=== PATIENT | female | born 2000 | race Caucasian/White ===

== ENCOUNTER → 2024-09-11 09:40 | Outpatient (CLI) | payer OTHER, SELFPAY ==
[2024-09-11 12:37] LABS: Urine N gonorrhoeae NOT DETECTED
[2024-09-11 12:40] LABS: Urine Chlamydia NOT DETECTED
== END ==
PROVIDERS: PCP Physician Assistant; Visit Provider Student in an Organized Health Care Education/Training Program
DX: Z11.3 Encounter for screening for infections with a predominantly sexual mode of transmission (principal)
CPT/HCPCS: 87491; 87591

== ENCOUNTER → 2024-09-27 10:26 | Outpatient (CLI) | payer OTHER, SELFPAY ==
[2024-09-27 11:35] LABS: Natera Collection Specimen Collected
== END ==
PROVIDERS: PCP Physician Assistant; Referring Provider Student in an Organized Health Care Education/Training Program; Visit Provider Student in an Organized Health Care Education/Training Program
DX: O09.899 Supervision of other high risk pregnancies, unspecified trimester (principal)
CPT/HCPCS: 87086

== ENCOUNTER → 2024-10-09 11:34 | Outpatient (CLI) | payer OTHER, SELFPAY ==
[2024-10-09 12:47] LABS: Add Manual Diff / Slide Review NO; Basophils Absolute Auto 0 /uL (0-100); Basophils Percent Auto 0.3 % (0-2); Eosinophils Absolute Auto 100 /uL (0-450); Eosinophils Percent Auto 1.3 % (2-4); Hematocrit 37.4 % (36-46); Hemoglobin 12.6 g/dL (12.0-16.0); Lymphocytes Absolute Auto 2000 /uL (1100-4500); Lymphocytes Percent Auto 24.7 % (25-40); Mean Corpuscular HGB Conc 33.8 % (30-36); Mean Corpuscular Hemoglobin 29.3 PG (26-34); Mean Corpuscular Volume 86.7 fL (80-100); Monocytes Absolute Auto 500 /uL (0-900); Monocytes Percent Auto 6.3 % (3-14); Neutrophils Absolute Auto 5300 /uL (1500-7000); Neutrophils Percent Auto 67.4 % (50-75); Platelet Count 260 X10^3/uL (150-400); Red Blood Cell Count 4.31 X10^6/uL (4.0-5.2); Red Cell Distribution Width 14.2 % (11.6-14.8); White Blood Cell Count 7.9 X10^3/uL (4.5-11.0)
[2024-10-09 12:58] LABS: Alanine Aminotransferase 16 IU/L (<35); Albumin 4.2 g/dL (3.5-5.0); Albumin Globulin Ratio 1.5 (1.0-2.8); Alkaline Phosphatase 55 U/L (38-126); Aspartate Aminotransferase 25 IU/L (14-36); BUN Creatinine Ratio 15.9 (6-22); Bilirubin Total 0.4 mg/dL (0.2-1.3); Blood Urea Nitrogen 7 mg/dL (7-17); Carbon Dioxide 21 mmol/L (22-32); Chloride 105 mmol/L (98-107); Estimated Glomerular Filt Rate > 60 mL/min (>60); Globulin 2.8 g/dL (1.7-4.1); Glucose 85 mg/dL (70-99); HEMOLYSIS < 15 (0-50); Potassium 4.1 mmol/L (3.4-5.1); Sodium 136 mmol/L (137-145)
[2024-10-09 15:41] LABS: Hepatitis B Surface Antigen NEGATIVE s/c (NEGATIVE)
[2024-10-09 16:34] LABS: HIV 1 & 2 Ab/Ag 4th Gen Combo NEGATIVE (NEGATIVE); Hep C Virus Ab w/Reflex Quant NEGATIVE s/c (NEGATIVE)
[2024-10-10 09:09] LABS: Varicella IgG Antibody Non Reactive (Non Reactive)
[2024-10-11 06:05] LABS: RPR Screen Non Reactive (Non Reactive)
== END ==
PROVIDERS: PCP Physician Assistant; Referring Provider Student in an Organized Health Care Education/Training Program; Visit Provider Student in an Organized Health Care Education/Training Program
DX: O99.210 Obesity complicating pregnancy, unspecified trimester (principal)
CPT/HCPCS: 36415; 80053; 80055; 83036; 86787; 86803; 86850; 86900; 86901; 87389

== ENCOUNTER → 2024-12-05 11:00 | Outpatient (CLI) | payer OTHER, SELFPAY ==
--- NOTE | 2024-12-05 11:01 | DI.US.S_ITS ---
PROCEDURE: US OB >= 14 WEEKS FETUS INDICATIONS: 20 week anatomy scan The calculations are made using the working PARMINDER of 04/25/2025. TECHNIQUE: Real-time scanning was performed of the fetus, with image documentation and biometric measurements. Endovaginal scanning: No COMPARISON: None. FINDINGS: General: A single living intrauterine gestation is present. Presentation: Breech Placenta: Placental position is anterior , without previa. Amniotic fluid index: 11.1 cm, normal range is 5-24 cm. Single deepest vertical pocket is 4.2 cm. heart rate: 150 beats per minute. Maternal cervical canal: 3.6 cm long. Normal lower limit is 2.5 cm. biometrics: Biparietal diameter: 4.6 cm, 19 week 5 day Head circumference: 16.8 cm, 19 week 3 day Abdominal circumference: 14.9 cm, 20 week 1 day Femur length: 3.2 cm, 20 week 0 day Clinically estimated gestational age: 19 week 6 day Composite gestational age from present scan: 19 week 6 day Estimated weight and percentile: 326 g, 54 percentile Anatomic survey: Neuro: Ventricles are non-dilated at less than 10 mm. Cisterna magna is normal at 3-11 mm. Cerebellum is normal in size and morphology. Nuchal skin fold: Normal at less than 6 mm between 14-21 weeks gestational age. Face: Nose and lips, facial profile are normal. Spine: No evidence for spina bifida. Heart: 4-chambered heart is present, with normal ventricular outflow tracts. Diaphragm: Diaphragm is intact. Stomach: Left-sided stomach is present. Kidneys: No hydronephrosis. Normal is less than 5 mm in 2nd trimester, less than 7 mm in 3rd trimester. Cord: 3-vessel cord has orthotopic insertion. Bladder: Normal in size. Extremities: All 4 extremities identified. IMPRESSION: Single live intrauterine consistent with 19 week 6 day gestation. Approved by: Paul Molina M.D. on 12/05/2024 at 17:06
== END ==
PROVIDERS: PCP Physician Assistant; Referring Provider Student in an Organized Health Care Education/Training Program; Visit Provider Student in an Organized Health Care Education/Training Program
DX: Z36.0 Encounter for antenatal screening for chromosomal anomalies (principal); Z3A.19 19 weeks gestation of pregnancy
CPT/HCPCS: 76811

== ENCOUNTER → 2024-12-05 14:44 | Outpatient (CLI) | payer OTHER, SELFPAY | LOC: LAB 14:45 | PROVIDERS: PCP Physician Assistant; Referring Provider Obstetrics & Gynecology; Visit Provider Obstetrics & Gynecology | DX: Z34.02 Encounter for supervision of normal first pregnancy, second trimester (principal) | CPT/HCPCS: 36415; 76811; 82105 ==

== ENCOUNTER 2025-03-20 09:42 | Outpatient (CLI) | payer OTHER, SELFPAY | END 2025-03-20 10:43 | disposition home or self-care (01) | LOC: LABOR 10:02 → OB 12:07 | PROVIDERS: PCP Physician Assistant; Referring Provider Obstetrics & Gynecology; Visit Provider Obstetrics & Gynecology | DX: O42.913 Preterm premature rupture of membranes, unspecified as to length of time between rupture and onset of labor, third trimester (principal); Z3A.34 34 weeks gestation of pregnancy | CPT/HCPCS: 59025; 84112; G0378; G0379 ==

== ENCOUNTER 2025-03-26 14:13 | Observation (INO) | payer OTHER, SELFPAY ==
[2025-03-26 15:06] LABS: Add Manual Diff / Slide Review NO; Hematocrit 31.7 % (36-46); Hemoglobin 10.6 g/dL (12.0-16.0); Lymphocytes Absolute Auto 2500 /uL (1100-4500); Mean Corpuscular HGB Conc 33.6 % (30-36); Mean Corpuscular Hemoglobin 28.4 PG (26-34); Mean Corpuscular Volume 84.7 fL (80-100); Platelet Count 276 X10^3/uL (150-400)
[2025-03-26 15:35] LABS: Protein (Total) Urine Random 38 mg/dL (0-12); Protein Creatinine Ratio Urine 0.17 GRAM/24H
[2025-03-26 15:36] LABS: Alanine Aminotransferase 13 IU/L (<35); Albumin 3.7 g/dL (3.5-5.0); Albumin Globulin Ratio 1.2 (1.0-2.8); Alkaline Phosphatase 103 U/L (38-126); Blood Urea Nitrogen 7 mg/dL (7-17); Calcium 8.9 mg/dL (8.4-10.2); Carbon Dioxide 17 mmol/L (22-32); Chloride 107 mmol/L (98-107); Estimated Glomerular Filt Rate > 60 mL/min (>60); Globulin 3.1 g/dL (1.7-4.1); Glucose 136 mg/dL (70-99); HEMOLYSIS < 15 (0-50); Potassium 3.5 mmol/L (3.4-5.1); Sodium 135 mmol/L (137-145); Total Protein 6.8 g/dL (6.3-8.2); Uric Acid 4.3 mg/dL (2.5-6.2)
== END 2025-03-26 17:00 | disposition home or self-care (01) ==
PROVIDERS: Admitting Provider Obstetrics & Gynecology; PCP Physician Assistant; Referring Provider Obstetrics & Gynecology; Visit Provider Obstetrics & Gynecology
DX: O16.3 Unspecified maternal hypertension, third trimester (principal); Z03.71 Encounter for suspected problem with amniotic cavity and membrane ruled out; Z3A.35 35 weeks gestation of pregnancy
CPT/HCPCS: 59025; 59050; 80053; 84112; 84550; 85025; 96360; G0378; G0379

== ENCOUNTER 2025-03-27 13:11 | Observation (INO) | payer OTHER, SELFPAY ==
[2025-03-27 13:44] LABS: Add Manual Diff / Slide Review NO; Hematocrit 31.0 % (36-46); Hemoglobin 10.5 g/dL (12.0-16.0); Lymphocytes Absolute Auto 2200 /uL (1100-4500); Mean Corpuscular HGB Conc 33.8 % (30-36); Mean Corpuscular Hemoglobin 28.5 PG (26-34); Mean Corpuscular Volume 84.4 fL (80-100); Platelet Count 258 X10^3/uL (150-400)
[2025-03-27 13:55] LABS: Alanine Aminotransferase 11 IU/L (<35); Albumin 3.5 g/dL (3.5-5.0); Albumin Globulin Ratio 1.1 (1.0-2.8); Alkaline Phosphatase 95 U/L (38-126); Blood Urea Nitrogen 7 mg/dL (7-17); Calcium 8.8 mg/dL (8.4-10.2); Carbon Dioxide 18 mmol/L (22-32); Chloride 107 mmol/L (98-107); Estimated Glomerular Filt Rate > 60 mL/min (>60); Globulin 3.2 g/dL (1.7-4.1); Glucose 119 mg/dL (70-99); HEMOLYSIS < 15 (0-50); Potassium 3.4 mmol/L (3.4-5.1); Sodium 134 mmol/L (137-145); Total Protein 6.7 g/dL (6.3-8.2)
--- NOTE | 2025-03-27 16:45 | PM.OBTRLD ---
Visit Information Visit Information Date of evaluation: 03/27/25 Primary OB Provider: Eugenia Ordonez On-call OB Provider: Eugenia Ordonez Reason for Evaluation: Yes other Comments/Additional reasons for admission: Patient is a 24yo @ 35w6d presents to L&D with new headache and nausea today. of note-- patient sent to L&D yesterday for BP monitoring and PIH labs due to elevated blood pressure in clinic. BP 150/100 in clinic and reported feeling unwell and increased swelling at the time. yesterday on L&D blood pressures were 110-120s/80s with no elevated blood pressures and normal CMP/CBC, P/c ratio- 0.1 Decision made to discharge home to her mother's home locally and collect 24 hour urine protein and return today for repeat BP check. Patient did buy a home BP cuff-- reports a single elevated blood pressure at home 140/90, otherwise normal blood pressures. denies any further leaking fluid. COUNT INCLUDES THE [facility] Medical History (Updated 11/06/24 @ 11:35 by Melania Lima DO) Bronchitis Wrist fracture, left (~2017) Surgical History (Updated 08/14/24 @ 14:12 by Cindy Noe, EDGARDO) S/P cryotherapy of skin lesion History of hysteroscopy Anesthesia H/O wrist surgery (07/2017) Hx of tonsillectomy (05/2013) Family History (Updated 08/14/24 @ 14:18 by Cindy Noe, RN) Father Schizophrenia Depression Anxiety Drug abuse Alcohol abuse Mother Uterine cancer Brother Depression ADHD Cardiac arrhythmia Grandfather Substance abuse Grandmother Substance abuse Grandfather No problems noted. 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) current occupational exposures/hazards: No special [place] needs: No travel history: over 6 months ago seatbelt use: always water heater temp set < 120 deg: Yes working smoke detector in home: Yes fire extinguisher in home: No carbon monox detector in home: Yes firearms in home: Yes firearms unloaded and locked: Yes do you feel safe at home: Yes Tobacco: How many years used: 3 (off and on) second hand exposure: No alcohol intake: former (sober since early 2023) substance use type: does not use during the past year weight has: remained stable well-balanced diet: rarely or never daily servings fruits/ve-1 caffeine: Yes (single AM espresso drink) Type(s) of exercise: walking Exam Vital Signs (past 8 hours): BPs- 100-120s/70s, isolated 130/80 Narrative Exam Narrative: GEneral- AAO x3, NAD cardio- RRR lungs- unlabored breathing abdomen- gravid, soft, no RUQ or epigastric tenderness LE- 1+ edema, nonpitting Objective Labs 03/27/25 13:33 03/27/25 13:33 Labs: Laboratory Results - last 24 hr 03/27/25 13:33 WBC 10.5 RBC 3.67 L Hgb 10.5 L Hct 31.0 L MCV 84.4 MCH 28.5 MCHC 33.8 RDW 15.5 H Plt Count 258 Neut % (Auto) 72.5 Lymph % (Auto) 20.7 L [place] % (Auto) 4.9 Eos % (Auto) 1.5 L Baso % (Auto) 0.4 Neut # (Auto) 7600 H Lymph # (Auto) 2200 [place] # (Auto) 500 Eos # (Auto) 200 Baso # (Auto) 0 Sodium 134 L Potassium 3.4 Chloride 107 Carbon Dioxide 18 L BUN 7 Creatinine 0.40 L Estimated GFR > 60 BUN/Creatinine Ratio 17.5 Glucose 119 H Calcium 8.8 Total Bilirubin 0.2 AST 19 ALT 11 Alkaline Phosphatase 95 Total Protein 6.7 Albumin 3.5 Globulin 3.2 Albumin/Globulin Ratio 1.1 Evaluation Evaluation Baseline heart rate: 140 Variability: Moderate (6-25) monitor accelerations: Present Monitor Decelerations: Absent Contraction Frequency (minutes): 0 Category of Tracing: Reactive Status: Category l Diagnosis, Plan/Disposition Plan/Disposition Plan: Jesus is a 24yo @ 35w6d presents with headache, rule out preeclampsia. 1. Elevated blood pressure- single elevated 150/100 in clinic on 03/26 - headache and nausea currently resolved -prolonged BP monitoring yesterday and today-- all normotensive - single elevated at home-- wrong cuff size-- patient given a universal cuff at L&D today to monitor BPs at home - PIH labs repeated today- wnl 24 hour UP pending-- jesus does not technically meet criteria for GHTN or PreE as she has not had elevated blood pressures 4 hours apart but will monitor closely - patient retuning to [facility] today n the ferr-- returns to [place] on 04/05 and will remain off the [place] after that time. reviewed s/s of Preeclampsia, reasons to call the clinic or return to the hospital including BPs >140/90 at home. dispo- discharge home, keep f/u appt next week and given strict PreE, PTL precautions OB Disposition: home
[2025-04-02 13:11] LABS: Albumin 53.1 % (.); Protein, Total, 24 hr urine 179 mg/24 hr (30-150); Total Urine Protein 6.5 mg/dL (Not Estab.)
== END 2025-03-27 16:30 | disposition home or self-care (01) ==
PROVIDERS: Admitting Provider Obstetrics & Gynecology; PCP Physician Assistant; Referring Provider Obstetrics & Gynecology; Visit Provider Obstetrics & Gynecology
DX: O26.893 Other specified pregnancy related conditions, third trimester (principal); R03.0 Elevated blood-pressure reading, without diagnosis of hypertension; R11.0 Nausea; R51.9 Headache, unspecified; Z3A.35 35 weeks gestation of pregnancy
CPT/HCPCS: 36415; 59025; 80053; 84156; 84166; 85025; G0378; G0379

== ENCOUNTER → 2025-04-05 16:08 | Outpatient (CLI) | payer OTHER, SELFPAY ==
[2025-04-06 13:12] LABS: Strep Grp B PCR NEG for Grp B Strep
== END ==
PROVIDERS: PCP Physician Assistant; Visit Provider Obstetrics & Gynecology
DX: Z36.85 Encounter for antenatal screening for Streptococcus B (principal); O99.713 Diseases of the skin and subcutaneous tissue complicating pregnancy, third trimester; L29.9 Pruritus, unspecified
CPT/HCPCS: 87653

== ENCOUNTER → 2025-04-05 16:54 | Outpatient (CLI) | payer OTHER, SELFPAY ==
[2025-04-05 18:04] LABS: Alanine Aminotransferase 9 IU/L (<35); Albumin 3.6 g/dL (3.5-5.0); Albumin Globulin Ratio 1.3 (1.0-2.8); Alkaline Phosphatase 109 U/L (38-126); Blood Urea Nitrogen 10 mg/dL (7-17); Calcium 9.3 mg/dL (8.4-10.2); Carbon Dioxide 18 mmol/L (22-32); Chloride 106 mmol/L (98-107); Estimated Glomerular Filt Rate > 60 mL/min (>60); Globulin 2.8 g/dL (1.7-4.1); Glucose 99 mg/dL (70-99); HEMOLYSIS < 15 (0-50); Potassium 3.9 mmol/L (3.4-5.1); Sodium 134 mmol/L (137-145); Total Protein 6.4 g/dL (6.3-8.2)
== END ==
PROVIDERS: PCP Physician Assistant; Referring Provider Obstetrics & Gynecology; Visit Provider Obstetrics & Gynecology
DX: O99.713 Diseases of the skin and subcutaneous tissue complicating pregnancy, third trimester (principal); L29.9 Pruritus, unspecified
CPT/HCPCS: 36415; 80053; 82239; 87653

== ENCOUNTER 2025-04-10 12:57 | Outpatient (CLI) | payer OTHER, SELFPAY | END 2025-04-10 14:03 | disposition home or self-care (01) | LOC: LABOR 13:49 → OB 04-11 07:28 | PROVIDERS: PCP Physician Assistant; Referring Provider Family Medicine; Visit Provider Family Medicine | DX: Z34.83 Encounter for supervision of other normal pregnancy, third trimester (principal); Z3A.37 37 weeks gestation of pregnancy | CPT/HCPCS: 59025; G0378; G0379 ==

== ENCOUNTER → 2025-04-12 12:55 | Outpatient (CLI) | payer OTHER, SELFPAY ==
--- NOTE | 2025-04-12 13:17 | EKG_ITS ---
[address] [address] Test Date: 2025-04-12 Pat Name: Chapin Peace Department: [facility] Room: Gender: Female Completion Supervisor: NAY : 2000 Requested By: Order Number: [id number] Reading MD: Luis Fernando Ferreira MD Measurements Intervals [place] Rate: 126 P: 35 OK: 156 QRS: 106 QRSD: 90 T: 11 QT: 310 QTc: 448 Interpretive Statements Sinus tachycardia Rightward axis Inferior infarct , age undetermined Cannot rule out Anterior infarct , age undetermined NO PRIOR TRACING Electronically Signed On 04-13-2025 7:24:23 PDT by Luis Fernando Ferreira MD
== END ==
LOC: LAB 12:56 → RESP 12:56
PROVIDERS: PCP Physician Assistant; Referring Provider Obstetrics & Gynecology; Visit Provider Obstetrics & Gynecology
DX: O09.899 Supervision of other high risk pregnancies, unspecified trimester (principal); E66.01 Morbid (severe) obesity due to excess calories; O36.8390 Maternal care for abnormalities of the fetal heart rate or rhythm, unspecified trimester, not applicable or unspecified; O99.210 Obesity complicating pregnancy, unspecified trimester; Z3A.38 38 weeks gestation of pregnancy
CPT/HCPCS: 93005; 93010